=== PATIENT | female | born 1955 | race Caucasian/White ===

== ENCOUNTER 2019-11-11 08:06 | Outpatient (CLI) | payer MEDICARE, OTHER ==
--- NOTE | 2019-11-11 08:49 | ULT ---
Ultrasound left lower extremity: 11/11/2019 HISTORY: 64-year-old female with "large hematoma left lower femur" COMPARISON: None FINDINGS: Within the soft tissues, there is a large well-circumscribed, nonlobulated mixed solid and cystic mas s, with no posterior acoustic shadowing. Internal contents have a spongiform appearance. This is consistent with a subacute hematoma with breakdown of left products. However, neoplasm cannot be excl uded. The [id number] of the transducer used does not fit the entire mass. Therefore, measurements are only rough estimates: Approximately 6.5 x 5.5 x 8 cm. IMPRESSION: Large mixed solid and cystic mass in the soft tissues (presumably in the thigh, according to the hist ory). The appearances consistent with a subacute hematoma in the soft tissues. However, neoplasm such as sarcoma is not excluded. Therefore, serial follow-up ultrasounds are recommended, beginning i n 3 months.
== END 2019-11-11 08:07 | disposition home or self-care (01) ==
LOC: MADRAD 08:06
PROVIDERS: ATTEND Family Medicine
DX: R22.42 Localized swelling, mass and lump, left lower limb (principal); M79.89 Other specified soft tissue disorders
CPT/HCPCS: 76999

== ENCOUNTER 2021-12-17 11:15 | Outpatient (CLI) | payer MEDICARE, OTHER ==
[2021-12-17 12:09] LABS: ALT (SGPT) 18 U/L (8-55); AST (SGOT) 19 U/L (5-34); Albumin 4.2 g/dL (3.4-4.8); Alkaline Phosphatase 48 U/L (40-110); Anion Gap 13 mmol/L (10-20); BUN (Urea Nitrogen) 18 mg/dL (9.8-20.1); Bilirubin, Total 0.4 mg/dL (0.2-1.2); Calc. Creatinine Clearance 0 mL/min (70-130); Carbon Dioxide 25 mmol/L (23-31); Cardiac Risk 3.7 (Less than 4.5); Chloride 106 mmol/L (98-107); Cholesterol 141 mg/dl (< 200 Desired); Estimated GFR 48; Globulin 2.7 g/dL (2.4-3.5); Glucose 134 mg/dL (80-115); HDL Cholesterol 38 mg/dL (>60 Neg Risk); LDL Cholesterol, Calculated 61 mg/dL; Potassium 4.4 mmol/L (3.5-5.1); Protein, Total 6.9 g/dL (5.8-8.1); Sodium 140 mmol/L (136-145); Triglycerides 210 mg/dL (Less than 150)
[2021-12-17 16:23] LABS: Hemoglobin A1c 7.7 % (4.0-6.0)
== END 2021-12-17 11:16 | disposition home or self-care (01) ==
LOC: MADLABBHPM 11:15 → MADLAB 11:16
PROVIDERS: ATTEND Family Medicine
DX: E78.2 Mixed hyperlipidemia (principal); I11.9 Hypertensive heart disease without heart failure; E11.29 Type 2 diabetes mellitus with other diabetic kidney complication
CPT/HCPCS: 80053; 80061; 83036

== ENCOUNTER 2023-08-19 09:52 | Outpatient (CLI) | payer MEDICARE, OTHER | END 2023-08-19 09:53 | disposition home or self-care (01) | LOC: MADLAB 09:52 | PROVIDERS: ATTEND Family Medicine | DX: N95.0 Postmenopausal bleeding (principal); N85.2 Hypertrophy of uterus | CPT/HCPCS: 76856 ==

== ENCOUNTER 2025-01-18 11:34 | Outpatient (CLI) | payer MEDICARE, OTHER ==
[2025-01-18 11:58] LABS: #Basophils 0.1 thou/uL (0.0-0.2); #Eosinophils 0.6 thou/uL (0.0-0.7); #Lymphocytes 1.6 thou/uL (1.20-3.40); #Monocytes 0.5 thou/uL (0.11-0.59); #Neutrophils 4.3 thou/uL (1.40-6.50); %Basophils 1.2 % (0.0-1.0); %Eosinophils 8.7 % (0.0-10.0); %Lymphocytes 22.0 % (21.0-51.0); %Monocytes 7.4 % (0.0-10.0); %Neutrophils 60.6 % (42.0-75.0); Hematocrit 37.6 % (36.0-47.0); Hemoglobin 12.1 g/dL (12.0-16.0); Mean Corpuscular Hemoglobin 30.0 pg (27.0-31.0); Mean Corpuscular Volume 93.1 fl (78.0-98.0); Platelet Count 273 10x3/uL (130-400); Red Blood Cell (RBC) Count 4.03 mill/uL (4.20-5.40); White Blood Cell (WBC) Count 7.1 10x3/uL (4.8-10.8)
[2025-01-18 12:08] LABS: ALT (SGPT) 12 U/L (Less than 34); AST (SGOT) 18 U/L (11-34); Albumin 4.1 g/dL (3.1-4.5); Alkaline Phosphatase 84 U/L (40-110); Anion Gap 19 mmol/L (10-20); BUN (Urea Nitrogen) 14 mg/dL (9.8-20.1); Bilirubin, Total 0.9 mg/dL (0.3-1.2); Calc. Creatinine Clearance 0 mL/min (70-130); Calcium 9.6 mg/dL (7.8-10.44); Carbon Dioxide 24 mmol/L (23-31); Cardiac Risk 2.2 (Less than 4.5); Chloride 102 mmol/L (98-107); Cholesterol 104 mg/dl (< 200 Desired); Globulin 3.4 g/dL (2.4-3.5); Glucose 170 mg/dL (80-115); HDL Cholesterol 48 mg/dL (>60 Neg Risk); LDL Cholesterol, Calculated 20 mg/dL; Potassium 3.9 mmol/L (3.5-5.1); Sodium 141 mmol/L (136-145); Triglycerides 179 mg/dL (Less than 150)
== END 2025-01-18 11:35 | disposition home or self-care (01) ==
LOC: MADLAB 11:34
PROVIDERS: ATTEND Family Medicine
DX: Z00.00 Encounter for general adult medical examination without abnormal findings (principal); E11.65 Type 2 diabetes mellitus with hyperglycemia; Z78.0 Asymptomatic menopausal state
CPT/HCPCS: 36415; 80053; 80061; 82043; 82306; 85025